=== PATIENT | male | born 1950 | race Caucasian/White ===

== ENCOUNTER → 2018-06-10 | Outpatient (REF) | payer MEDICARE ==
[2018-06-10 14:17] LABS: HEMOGLOBIN A1c 5.9 %
[2018-06-10 14:19] LABS: FOLATE > 24.0 NG/ML (>5.4); FREE T4 0.86 NG/DL (0.76-1.46); RHEUMATOID FACTOR QUANT 89.2 IU/ML (<15.0); VITAMIN B12 LEVEL 575 PG/ML (247-911)
[2018-06-12 13:10] LABS: ALBUMIN 4.31 GM/DL (3.29-5.55); ALBUMIN % 61.6 % (55.8-66.1); ALPHA-1-GLOBULIN % 4.7 % (2.9-4.9); ALPHA-1-GLOBULINS 0.33 GM/DL (0.17-0.41); ALPHA-2-GLOBULINS 0.71 GM/DL (0.42-0.99); ALPHA-2-GLOBULINS % 10.2 % (7.1-11.8); BETA-1-GLOBULINS 0.43 GM/DL (0.28-0.60); BETA-1-GLOBULINS % 6.2 % (4.7-7.2); BETA-2-GLOBULINS 0.35 GM/DL (0.19-0.55); GAMMA GLOBULIN % 12.3 % (11.1-18.8); GAMMA GLOBULINS 0.86 GM/DL (0.65-1.58)
[2018-06-13 08:07] LABS: VITAMIN E(ALPHA TOCOPHEROL) 10.5 mg/L (9.0-29.0); VITAMIN E(GAMMA TOCOPHEROL) 0.7 mg/L (0.5-4.9)
== END ==
LOC: M LABNEURO 10:00
PROVIDERS: ATTEND Psychiatry & Neurology Neurology
DX: E11.9 Type 2 diabetes mellitus without complications (principal); E07.9 Disorder of thyroid, unspecified; R20.0 Anesthesia of skin

== ENCOUNTER → 2018-10-21 | Outpatient (REF) | payer MEDICARE ==
[~2018-10-21] MED LIST: ATOR1TAB21 PO; SM S160C PO; [UNRECOGNIZED DRUG - OTHER] PO
== END ==
LOC: M LABNEURO 12:10
PROVIDERS: ATTEND Psychiatry & Neurology Neurology
DX: R20.2 Paresthesia of skin (principal)

== ENCOUNTER → 2019-02-24 | Outpatient (CLI) | payer MEDICARE ==
[2019-02-24 12:29] LABS: APPEARANCE, URINE CLEAR (CLEAR); BACTERIA, URINE AUTO NEGATIVE (NEGATIVE); BILIRUBIN, URINE AUTO NEGATIVE (NEGATIVE); BLOOD, URINE BLOOD NEGATIVE (NEGATIVE); COLOR, URINE YELLOW (YELLOW); GLUCOSE, URINE (UA) AUTO NEGATIVE (NEGATIVE); KETONE, URINE AUTO NEGATIVE (NEGATIVE); LEUKOCYTE ESTERASE, URINE AUTO NEGATIVE (NEGATIVE); MUCUS, URINE SMALL (NEGATIVE); NITRITE, URINE AUTO NEGATIVE (NEGATIVE); PROTEIN, URINE AUTO NEGATIVE (NEGATIVE); RBC, URINE AUTO 0 /HPF (0-3); SPECIFIC GRAVITY URINE AUTO 1.005 (1.002-1.035); SQUAMOUS EPITHELIAL CELL UR AU 0 /HPF (0-6); UROBILINOGEN, URINE AUTO 0.2 mg/dL (0.0-2.0); WBC, URINE AUTO 0 /HPF (0-3)
[2019-02-24 12:34] LABS: BASO # 0.1 10^3/uL (0.0-0.2); BASO % 0.9 % (0.0-1.0); EOS # 0.1 10^3/uL (0.0-0.5); EOS % 2.4 % (0.0-3.0); HEMATOCRIT 42.6 % (42.0-52.0); HEMOGLOBIN 14.5 g/dl (13.5-17.5); LYMPH # 1.8 10^3/uL (1.5-5.0); LYMPH % 33.3 % (24.0-44.0); MEAN CORPUSCULAR HEMOGLOBIN 31.6 pg (27.0-33.0); MEAN CORPUSCULAR VOLUME 92.8 fl (80.0-96.0); MONO # 0.4 10^3/uL (0.0-0.8); MONO % 7.8 % (0.0-5.0); PLATELET COUNT, AUTOMATED 109 10^3/uL (150-450); RED BLOOD COUNT 4.59 10^6/uL (4.30-6.10); WHITE BLOOD COUNT 5.4 10^3/uL (4.0-10.0)
[2019-02-24 12:46] LABS: CREATININE,RANDOM URINE 46.5 MG/DL; TOTAL PROTEIN,RANDOM URINE < 5.0 MG/DL (0.0-12.0)
[2019-02-24 12:49] LABS: ALBUMIN 3.6 GM/DL (3.2-5.2); ALT/SGPT 35 U/L (12-78); BILIRUBIN,TOTAL 0.6 MG/DL (0.2-1.0); BLOOD UREA NITROGEN 20 MG/DL (7-18); C REACTIVE PROTEIN QUANTITATIV < 0.30 MG/DL (0.00-0.30); CARBON DIOXIDE LEVEL 30 MEQ/L (21-32); CHLORIDE LEVEL 106 MEQ/L (98-107); COMPLEMENT C3 81 MG/DL (90-180); COMPLEMENT C4 21 MG/DL (10-40); CREATININE FOR GFR 1.24 MG/DL (0.70-1.30); GLOMERULAR FILTRATION RATE > 60.0 (>49); GLUCOSE, FASTING 71 MG/DL (70-100); POTASSIUM SERUM 4.1 MEQ/L (3.5-5.1); SODIUM LEVEL 142 MEQ/L (136-145); TOTAL PROTEIN 6.3 GM/DL (6.4-8.2)
[2019-02-24 13:23] LABS: ERYTHROCYTE SEDIMENTATION RATE 2 mm/hr (0-20)
[2019-02-25 09:12] LABS: HEPATITIS B SURFACE ANTIBODY NEGATIVE (POSITIVE)
[2019-02-25 09:23] LABS: HEPATITIS B SURFACE ANTIGEN NEGATIVE (NEGATIVE)
[2019-02-25 09:51] LABS: HEPATITIS C VIRUS ABY INDEX 0.1 INDEX (<0.8)
[2019-02-26 09:38] LABS: ALBUMIN 3.96 GM/DL (3.29-5.55); ALBUMIN % 62.8 % (55.8-66.1); ALPHA-1-GLOBULIN % 4.1 % (2.9-4.9); ALPHA-1-GLOBULINS 0.26 GM/DL (0.17-0.41); ALPHA-2-GLOBULINS 0.55 GM/DL (0.42-0.99); ALPHA-2-GLOBULINS % 8.8 % (7.1-11.8); BETA-1-GLOBULINS % 6.4 % (4.7-7.2); BETA-2-GLOBULINS % 4.8 % (3.2-6.5); GAMMA GLOBULIN % 13.1 % (11.1-18.8); GAMMA GLOBULINS 0.83 GM/DL (0.65-1.58)
== END ==
LOC: M LAB 10:18
PROVIDERS: ATTEND Internal Medicine Rheumatology
DX: R89.9 Unspecified abnormal finding in specimens from other organs, systems and tissues (principal)

== ENCOUNTER 2019-03-17 07:23 | Day surgery (SDC) | payer MEDICARE ==
[~2019-03-17] VITALS: Ht 177.8 cm; Wt 81.2 kg
[~2019-03-17 07:23] MED LIST changes: +NS 1,000 ML IV ONE; -SM S160C PO
[2019-03-17] MEDS ORDERED: LIDOCAINE 2% INJ 100 MG/5 ML SDV (FOR ANES.) As Ordered ONE (08:15)
[2019-03-17] MEDS ORDERED: PROPOFOL 500 MG/50 ML VIAL As Ordered ONE (08:15)
--- NOTE | 2019-03-17 08:33 | ROOR ---
Patient Name: Pedro Cordero Procedure Date: 03/17/2019 8:13 AM Date of : 1950 Age: 69 Room: [facility] Gender: Male Note Status: Finalized Procedure: Total Colonoscopy to Cecum + Cold Snare Polypectomy Indications: High risk colon cancer surveillance: Personal history of colonic polyps, Last colonoscopy: 2013 Providers: Douglas Woodall MD Referring MD: Navid Rodríguez MD Requesting Provider: Medicines: Monitored Anesthesia Care Complications: No immediate complications. Procedure: Pre-Anesthesia Assessment: - The heart rate, respiratory rate, oxygen saturations, blood pressure, adequacy of pulmonary ventilation, and response to care were monitored throughout the procedure. The Colonoscope was introduced through the anus and advanced to the cecum, identified by appendiceal orifice and ileocecal valve. The colonoscopy was performed without difficulty. The patient tolerated the procedure well. The quality of the bowel preparation was excellent. Findings: The perianal and digital rectal examinations were normal. Non-bleeding internal hemorrhoids were found during retroflexion. The hemorrhoids were small and Grade I (internal hemorrhoids that do not prolapse). Scattered small-mouthed diverticula were found in the recto-sigmoid colon, sigmoid colon and descending colon. A small polyp was found in the ascending colon. The polyp was sessile. The polyp was removed with a cold snare. Resection and retrieval were complete. The exam was otherwise without abnormality on direct and retroflexion views. Impression: - Non-bleeding internal hemorrhoids. - Diverticulosis in the recto-sigmoid colon, in the sigmoid colon and in the descending colon. - One small polyp in the ascending colon, removed with a cold snare. Resected and retrieved. - The examination was otherwise normal on direct and retroflexion views. - The exam was otherwise normal to the cecum. Recommendation: - Patient has a contact number available for emergencies. The signs and symptoms of potential delayed complications were discussed with the patient. Return to normal activities tomorrow. Written discharge instructions were provided to the patient. - High fiber diet. - Discharge patient to home. - Continue present medications. - Await pathology results. - Telephone GI clinic for pathology results in 1 week. - Return to referring physician. - The findings and recommendations were discussed with the patient's family. Douglas Woodall MD Douglas Woodall MD 03/17/2019 8:33:25 AM Electronically signed by Douglas Woodall MD Number of Addenda: 0 Note Initiated On: 03/17/2019 8:13 AM Estimated Blood Loss: Estimated blood loss: none.
[2019-03-17 08:50] VITALS: BP 98/65
== END 2019-03-17 09:00 | disposition home or self-care (01) ==
LOC: M OPP 07:23
PROVIDERS: ATTEND Internal Medicine Gastroenterology
DX: Z12.11 Encounter for screening for malignant neoplasm of colon (principal); Z86.010 Personal history of colon polyps; D12.2 Benign neoplasm of ascending colon; K64.0 First degree hemorrhoids; K57.30 Diverticulosis of large intestine without perforation or abscess without bleeding; Z79.899 Other long term (current) drug therapy

== ENCOUNTER 2019-04-02 09:24 | Observation (INO) | payer MEDICARE ==
[~2019-04-02] VITALS: Ht 177.8 cm; Wt 83.2 kg
[~2019-04-02 09:24] MED LIST changes: -NS 1,000 ML IV ONE
[2019-04-02 10:11] LABS: BASO % 0.4 % (0.0-1.0); EOS # 0.1 10^3/uL (0.0-0.5); EOS % 0.8 % (0.0-3.0); HEMATOCRIT 43.4 % (42.0-52.0); HEMOGLOBIN 14.9 g/dl (13.5-17.5); LYMPH # 1.8 10^3/uL (1.5-5.0); LYMPH % 23.5 % (24.0-44.0); MEAN CORPUSCULAR HEMOGLOBIN 31.2 pg (27.0-33.0); MEAN CORPUSCULAR HGB CONC 34.3 g/dl (32.0-36.5); MEAN CORPUSCULAR VOLUME 90.8 fl (80.0-96.0); MONO # 0.5 10^3/uL (0.0-0.8); MONO % 6.3 % (0.0-5.0); NEUTROPHILS # 5.2 10^3/uL (1.5-8.5); NEUTROPHILS % 68.6 % (36.0-66.0); PLATELET COUNT, AUTOMATED 167 10^3/uL (150-450); RED BLOOD COUNT 4.78 10^6/uL (4.30-6.10); WHITE BLOOD COUNT 7.6 10^3/uL (4.0-10.0)
--- NOTE | 2019-04-02 10:37 | REP ---
Portable chest x-ray: Single view. History: Syncope. Findings: The lungs are well inflated and clear. Pleural angles are sharp. Heart size is normal. Pulmonary vasculature is not increased. Monitoring electrodes are seen. No bony abnormalities seen. Impression: Negative portable chest x-ray. Electronically Signed by Jaime Jensen MD 04/02/2019 10:28 A
[2019-04-02 10:49] LABS: BLOOD UREA NITROGEN 18 MG/DL (7-18); CALCIUM LEVEL 9.2 MG/DL (8.8-10.2); CARBON DIOXIDE LEVEL 26 MEQ/L (21-32); CHLORIDE LEVEL 106 MEQ/L (98-107); CK-MB VALUE MASS 4.6 NG/ML (<3.6); CPK CREATINE PHOSPHOKINASE 182 U/L (39-308); CREATININE FOR GFR 1.61 MG/DL (0.70-1.30); FREE T4 0.96 NG/DL (0.76-1.46); GLOMERULAR FILTRATION RATE 45.5 (>49); GLUCOSE, FASTING 91 MG/DL (70-100); MB/CK RELATIVE INDEX 2.53 (< OR =4); SODIUM LEVEL 143 MEQ/L (136-145); TROPONIN I < 0.02 NG/ML (< 0.10)
[2019-04-02] MEDS ORDERED: SM S160C PO (12:05)
[2019-04-02] MEDS ORDERED: ACETAMINOPHEN TAB 650MG DOSE (2X325MG) PO PRN (13:15)
[2019-04-02 14:44] VITALS: BP 118/72
--- NOTE | 2019-04-02 17:41 | HPEPDOC ---
General Date of Admission Apr 02, 2019 at 09:25 Date of Service: Apr 02, 2019 Attending Physician: OLIMPIA ENGEL MD Chief Complaint The patient is a 69-year-old male admitted with a reason for visit of Near Syncope. Source: Patient Exam Limitations: No limitations Timing/Duration: 4-6 hours Severity: Moderate Associated Symptoms: Other (Presyncope) History of Present Illness 69 yo man in good health with a recent history of progressive peripheral ne uropathy with normal B12, B6 and ongoing neurology and rheumatology evaluation, a prior diagnosis of hyperlipidemia? 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 Mr. Cordero had a near syncope episode this morning while taking out his trash and then a few hours later was noted to have a HR of 140s. He reports having been previously told that he had an "irregular" heartbeat but has never had an evaluation of it or been symptomatic from it until today. 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 Home Medications Scheduled Atorvastatin Calcium (Atorvastatin Calcium) 20 Mg Tablet, 20 MG PO DAILY, (Reported) [place] ([place]) 160 Mg Capsule, 160 MG PO DAILY, (Reported) Allergies Coded Allergies: No Known Allergies (Unverified , 03/03/19) Past Medical History Medical History Progressive peripheral neuropathy Carpal tunnel syndrome "Irregular heart beat" Arthritis Prediabetes Surgical History None Family History Significant Family History: No pertinent family hx Social History * Smoker: non-smoker Drugs: denies Recent Travel/Sick Contacts: Denies: Recent travel, Recent sick contacts Psychosocial History: No pertinent psych hx A-FIB/CHADSVASC A-FIB History Current/History of A-Fib/PAF?: No Current PO Anticoag Therapy: No Age/Risk Factor Scoring CHADSVASC: CHADSVASC Response (Comments) Value Age Risk Factor Age 65-74 years old 1 Gender Risk Factor Male 0 Hx of CHF No 0 Hx of HTN No 0 Hx of Stroke/TIA/or VTE No 0 Hx of Diabetes No 0 Hx of Vascular Disease No 0 Total 1 Treatment Treatment ordered: NONE Reason Anticoagulant not given: Not indicated/[id number] Review of Systems Constitutional: Denies: Chills, Fever, Night Sweats Eyes: Denies: Pain, Vision change ENT: Denies: Head Aches, Ear Pain, Dysphagia Skin: Denies: Rash, Lesions, Breakdown Pulmonary: Denies: Dyspnea, Cough Cardiovascular: Denies: Chest Pain, Palpitations, Orthopnea, Paroxysmal Noc. Dyspnea, Lt Headedness Gastrointestinal: Denies: Nausea, Vomiting, Abdominal Pain, Diarrhea Genitourinary: Denies: Dysuria, Frequency, Incontinence, Retention Hematologic: Denies: Bruising, Bleeding Excessively Endocrine: Denies: Polydipsia, Polyphagia, Polyuria, Heat Intolerance, Cold Intolerance, Other Endocrine Sx Musculoskeletal: Denies: Neck Pain, Back Pain, Joint Pain, Muscle Pain, Spasms Neurological: Reports: Other Symptoms (near syncope); Denies: Weakness, Numbness, Change in speech, Confusion Psych: Reports: Mood Normal; Denies: Depression, Memory Issues Physical Examination General Exam: Positive: Alert, No Acute Distress Eye Exam: Positive: PERRLA, Conjunctiva & lids normal, EOMI; Negative: Sclera icteric ENT Exam: Positive: Atraumatic, Mucous membr. moist/pink, Pharynx Normal Neck Exam: Positive: Supple; Negative: JVD, thyromegaly Chest Exam: Positive: Clear to auscultation, Normal air movement Heart Exam: Positive: Rate Normal, Regular Rhythm, Normal S1, Normal S2; Negative: Murmurs, Rubs Telemetry: Positive: SV Tach (short episodes of narrow complex tach and infrequent PVCs) Abdomen Exam: Positive: Normal bowel sounds, Soft; Negative: Tenderness, Hepatospenomegaly Extremity Exam: Positive: Normal pulses; Negative: Clubbing, Cyanosis, Edema Skin Exam: Positive: Nl turgor and temperature; Negative: Breakdown, Lesion Neuro Exam: Positive: Normal Gait, Normal Speech, Cranial Nerves 3-12 NL, Reflexes 2+ Psych Exam: Positive: Mental status NL, Mood NL, Oriented x 3 Vital Signs Vital Signs Date Time Temp Pulse Resp B/P (MAP) Pulse Ox O2 Delivery O2 Flow Rate FiO2 04/02/19 14:45 97.4 68 16 101/60 (74) 98 Room Air Laboratory Data Labs 24H Laboratory Tests 2 04/02/19 09:56: Immature Granulocyte % (Auto) 0.4, Neutrophils (%) (Auto) 68.6H, Lymphocytes (%) (Auto) 23.5L, Monocytes (%) (Auto) 6.3H, Eosinophils (%) (Auto) 0.8, Basophils (%) (Auto) 0.4, Neutrophils # (Auto) 5.2, Lymphocytes # (Auto) 1.8, Monocytes # (Auto) 0.5, Eosinophils # (Auto) 0.1, Basophils # (Auto) 0.0, Nucleated Red Blood Cells % (auto) 0.0, Anion Gap 11, Glomerular Filtration Rate 45.5L, Calcium Level 9.2, Magnesium Level 2.0, Total Creatine Kinase 182, Creatine Kinase MB 4.6H, Creatine Kinase MB Relative Index 2.53, Troponin I < 0.02, Thyroid Stimulating Hormone (TSH) 1.370, Free Thyroxine 0.96 CBC/BMP Laboratory Tests 04/02/19 09:56 Assessment/Plan 69 yo man with a history of progressive peripheral neuropathy and hyperlipidemia and preDM who presented to the ED with presyncope with noted tachycardia in the rheumatology office with significant ectopy on telemetry with narrow complex tachycardia with episodes of sinus tach with P waves with variable morphologies. Plan: Near syncope: Likely 2/2 episodic symptomatic narrow complex tachycardia with no definitive cardiac history. Given the history of progressive peripheral neuropathy with no identified nutritional deficiencies per outpatient work up, no significant metabolic syndrome, with new electrophysiology abnormalities, would consider amyloid in addition to other cardiac etiologies. -Admit to [facility] with tele -Mag was normal, goal >2 -Rest of electrolytes were wnl, goal K 4 -TSH and free T4 were within normal limits -TTE -Consulted Dr. Pearce, appreciate pending recs -Will not start beta blockade at this time as he is bouncing between 50s with short episodes of tachycardia to 150s. Hyperlipidemia: -continue lipitor 20 PreDM: -Daily BMPs, no need to have FSBG unless persistently hyperglycemic TADEO: Does not appear hypovolemic, unclear etiology at this time -will give 500cc bolus and monitor Cr -send urine lytes DVT ppx: heparin 5000 Q8H Diet: regular Plan / VTE VTE Prophylaxis Ordered?: Yes OLIMPIA ENGEL MD Apr 02, 2019 17:41
[2019-04-02] MEDS ORDERED: NS 1,000 ML IV SCH (17:45)
--- NOTE | 2019-04-02 18:26 | ECHO ---
DATE OF PROCEDURE: 04/02/2019 REFERRING PHYSICIAN: Dr. Ramos INDICATION: Arrhythmias. HEIGHT: 178 cm WEIGHT: 83 kg DIMENSIONS: IVS: 1.3 LV: 4.3 LVPW: 1.2 LA: 4.0 Aorta: 3.2 Mitral E wave velocity; 82, A wave 43. E prime septal: 5.4 A prime lateral: 8.9 FINDINGS The study is of very good technical quality. The patient is in sinus rhythm. Left ventricle is of normal size and systolic function, I estimate left ventricular ejection fraction (LVEF) around 55-60%. Mild left ventricular hypertrophy (LVH) is noted. Right ventricle is also normal size and systolic function. Left atrium is borderline enlarged. Right atrium appears normal. All four cardiac valves were reasonably well seen and appears structurally normal. No pericardial effusion is noted. Aortic root appears normal. Inferior vena cava, aortic arch and abdominal aorta were not well seen. Doppler interrogation reveals competent aortic valve, there is trace mitral tricuspid and pulmonic insufficiency. Calculated pulmonary artery pressure is within normal limits. Mitral inflow pattern and tissue Doppler imaging of mitral annulus revealed most likely grade 2 diastolic dysfunction. CONCLUSIONS 1. Study is of good technical quality, the patient is in sinus rhythm. 2. Normal left ventricle (LV) size with mild LVH, low normal LV systolic function and probably grade 2 diastolic dysfunction. 3. No hemodynamically significant valvular disease. 4. Unable to estimate central venous pressure but probably normal pulmonary artery pressure. COMMENT Subacute bacterial endocarditis (SBE) prophylaxis not recommended. MTDD
[2019-04-02] MEDS: HEPARIN SOD (PORCINE) 5000 UNITS/ML VIAL SC SCH (21:02)
[2019-04-02 22:00] VITALS: BP 134/91
[2019-04-03] MEDS: HEPARIN SOD (PORCINE) 5000 UNITS/ML VIAL SC SCH (05:13)
[2019-04-03 06:00] VITALS: BP 137/87
[2019-04-03 06:15] LABS: HEMOGLOBIN 14.6 g/dl (13.5-17.5); MEAN CORPUSCULAR HEMOGLOBIN 30.9 pg (27.0-33.0); MEAN CORPUSCULAR HGB CONC 33.2 g/dl (32.0-36.5); PLATELET COUNT, AUTOMATED 129 10^3/uL (150-450); RED BLOOD COUNT 4.73 10^6/uL (4.30-6.10); WHITE BLOOD COUNT 6.2 10^3/uL (4.0-10.0)
[2019-04-03 06:41] LABS: ALBUMIN 3.3 GM/DL (3.2-5.2); ALT/SGPT 28 U/L (12-78); BILIRUBIN,TOTAL 0.8 MG/DL (0.2-1.0); BLOOD UREA NITROGEN 18 MG/DL (7-18); CALCIUM LEVEL 8.7 MG/DL (8.8-10.2); CARBON DIOXIDE LEVEL 30 MEQ/L (21-32); CHLORIDE LEVEL 108 MEQ/L (98-107); CREATININE FOR GFR 1.34 MG/DL (0.70-1.30); GLOMERULAR FILTRATION RATE 56.3 (>49); GLUCOSE, FASTING 85 MG/DL (70-100); POTASSIUM SERUM 4.1 MEQ/L (3.5-5.1); SODIUM LEVEL 143 MEQ/L (136-145); TOTAL PROTEIN 6.3 GM/DL (6.4-8.2)
[2019-04-03 08:53] LABS: CHOLESTEROL LEVEL 139 MG/DL (<200); CHOLESTEROL RISK RATIO 2.278 (<5); CK-MB VALUE MASS 2.5 NG/ML (<3.6); CPK CREATINE PHOSPHOKINASE 120 U/L (39-308); HDL CHOLESTEROL 61 MG/DL (>40); LDL CHOLESTEROL 62 MG/DL (<100); MB/CK RELATIVE INDEX 2.08 (< OR =4); NON-HDL-C 78 MG/DL; TRIGLYCERIDES LEVEL 82 MG/DL (<150); TROPONIN I < 0.02 NG/ML (< 0.10)
[2019-04-03] MEDS ORDERED: ATORVASTATIN 20 MG TAB PO SCH (09:00)
--- NOTE | 2019-04-03 11:09 | DS.PDOC ---
Discharge Summary General Date of Admission Apr 02, 2019 at 09:25 Date of Discharge 04/03/2019 Attending Physician: OLIMPIA ENGEL MD Specialist/Consultants Involve: EMMY FLORES MD Discharge Summary PROCEDURES PERFORMED DURING STAY: None ADMITTING DIAGNOSES: 1. Near syncope DISCHARGE DIAGNOSES: 1. Near syncope 2/2 symptomatic episodic SVTs COMPLICATIONS/CHIEF COMPLAINT: Near Syncope. HISTORY OF PRESENT ILLNESS: 69 yo man in good health with a recent history of progressive peripheral neuropathy with normal B12, B6 and ongoing neurology and rheumatology evaluation, a prior diagnosis of hyperlipidemia? 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 He reported a near syncope episode on the morning of presentation while taking out his trash and then a few hours later was noted to have a HR of 140s. He reports having been previously told that he had an "irregular" heartbeat but has never had an evaluation of it or been symptomatic from it until the day of presentation. 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 Of note, his father had an "irregular heart beat" and from complications of his second stroke. HOSPITAL COURSE: He was placed on telemetry where he had a bsalien HR of 50-60s with tachycardia with exertion to 109. Cardiology was consulted and after a repeat set of cardiac enzymes was negative and EKG showed NSR with episodes of supraventricular tachycardia, Dr. Flores cleared him for home discharge with plan to pickers material handlers a Holter monitor in the office later today. Of note, he had a TTE that was notable for grade 2 diastolic dysfunction and some LVH with otherwise normal LVEF. DISCHARGE MEDICATIONS: Please see below. ALLERGIES: Please see below. PHYSICAL EXAMINATION ON DISCHARGE: VITAL SIGNS: Please see below. General Exam: Positive: Alert, No Acute Distress Eye Exam: PERRLA, Conjunctiva & lids normal, EOMI ENT Exam: Atraumatic, Mucous membr. moist/pink, Pharynx Normal Neck Exam: Supple, no JVD or thyromegaly Chest Exam: Clear to auscultation, Normal air movement Heart Exam: Rate Normal, Regular Rhythm, Normal S1, Normal S2, no murmurs or Rubs Telemetry: short episodes of narrow complex tach and infrequent PVCs Abdomen Exam: Normal bowel sounds, Soft, nontender Extremity Exam: no LE edema, WWP, 2+ DP pulses Skin Exam: Nl turgor and temperature Neuro Exam: Normal Gait, Normal Speech, Cranial Nerves 3-12 NL, Reflexes 2+ Psych Exam: Mental status NL, Mood NL, Oriented x 3 LABORATORY DATA: Please see below. IMAGING: CXR: No acute abnormalities TTE: Left ventricle is of normal size and systolic function, I estimate left ventricular ejection fraction (LVEF) around 55-60%. Mild left ventricular hypertrophy (LVH) is noted. Right ventricle is also normal size and systolic function. Left atrium is borderline enlarged. Right atrium appears normal. All four cardiac valves were reasonably well seen and appears structurally normal. No pericardial effusion is noted. Aortic root appears normal. Inferior vena cava, aortic arch and abdominal aorta were not well seen. Doppler interrogation reveals competent aortic valve, there is trace mitral tricuspid and pulmonic insufficiency. Calculated pulmonary artery pressure is within normal limits. Mitral inflow pattern and tissue Doppler imaging of mitral annulus revealed most likely grade 2 diastolic dysfunction. CONCLUSIONS 1. Study is of good technical quality, the patient is in sinus rhythm. 2. Normal left ventricle (LV) size with mild LVH, low normal LV systolic function and probably grade 2 diastolic dysfunction. 3. No hemodynamically significant valvular disease. 4. Unable to estimate central venous pressure but probably normal pulmonary artery pressure. PROGNOSIS: Good ACTIVITY: as tolerated DIET: regular DISCHARGE PLAN: will pickers material handlers Holter at Dr. Flores's office shortly and follow up with him outpatient DISPOSITION: Home DISCHARGE INSTRUCTIONS: To pickers material handlers Holter at Dr. Flores's office shortly and follow up with him outpatient ITEMS TO FOLLOWUP ON ON OUTPATIENT: 1. Irregular heartbeat DISCHARGE CONDITION: Good TIME SPENT ON DISCHARGE: 33 minutes. Vital Signs/I&Os Vital Signs Date Time Temp Pulse Resp B/P (MAP) Pulse Ox O2 Delivery O2 Flow Rate FiO2 04/03/19 06:00 98.1 70 18 137/87 (104) 98 Room Air I&O- Last 24 Hours up to 6 AM 04/03/19 06:00 Intake Total 660 ml Output Total 800 ml Balance -140 ml Laboratory Data Labs 24H Laboratory Tests 2 04/03/19 05:19: Nucleated Red Blood Cells % (auto) 0.0, Anion Gap 5L, Glomerular Filtration Rate 56.3, Calcium Level 8.7L, Magnesium Level 2.0, Total Bilirubin 0.8, Aspartate Amino Transf (AST/SGOT) 19, Alanine Aminotransferase (ALT/SGPT) 28, Alkaline Phosphatase 48, Total Creatine Kinase 120, Creatine Kinase MB 2.5, Creatine Kinase MB Relative Index 2.08, Troponin I < 0.02, Total Protein 6.3L, Albumin 3. 3, Albumin/Globulin Ratio 1.10, Triglycerides Level 82, Total Cholesterol 139, LDL Cholesterol 62, Non-HDL Cholesterol (LDL + VLDL) 78, Total HDL Cholesterol 61, Cholesterol/HDL Ratio 2.278 CBC/BMP Laboratory Tests 04/03/19 05:19 Discharge Medications Scheduled Atorvastatin Calcium (Atorvastatin Calcium) 20 Mg Tablet, 20 MG PO DAILY, (Reported) [place] ([place]) 160 Mg Capsule, 160 MG PO DAILY, (Reported) Allergies Coded Allergies: No Known Allergies (Unverified , 03/03/19) OLIMPIA ENGEL MD Apr 03, 2019 11:09
--- NOTE | 2019-04-03 22:14 | CR ---
DATE OF CONSULTATION: 04/03/2019 CARDIOLOGY CONSULTATION REFERRING PROVIDER: Dr. Anna Ramos PRIMARY PROVIDER: Dr. Navid Rodríguez REASON FOR THE CONSULT: Near syncope, palpitations. HISTORY OF THE PRESENT ILLNESS: A 69-year-old male with a history of hyperlipidemia and peripheral neuropathy, has been evaluated, as well as BPH and abnormal fasting blood sugar. 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 Prior to that earlier in the morning, he was bringing his trash to the curbside, and he felt short of breath and rapid heart rate but no chest pain. He is very active and has not been having any chest pain. He was told years ago he had irregular heartbeats but has not had any prior cardiac workup but EKGs. He denies any prior episode of syncope. There is no complaint of orthopnea, pedal edema or prior episode of shortness of breath. He has been very active and exercising. There is no focal manifestation. Case was discussed with the hospitalist yesterday, and he was admitted for observation. He has been doing well since in the hospital without any cardiac arrhythmias. He has been ambulating around the nursing station without any palpitations, chest pain, or shortness of breath, or dizziness or lightheadedness. His blood pressure has been good since in the hospital. He denies any cough, hemoptysis or fever. He has no nausea, vomiting, diarrhea, melena or hematemesis. There is no acute swelling or redness of the joints. PAST MEDICAL HISTORY: He has a past medical positive for, as mentioned above, for hyperlipidemia, BPH, glucose intolerance, and peripheral neuropathy. There is no history of hypertension, kidney disease, thyroid disorders, significant valvular heart disease, atrial fibrillation/flutter, transient ischemic attack (TIA)/CVA, cardiomyopathy, sudden cardiac . There is no history of thyroid disorders. In the past, he was on medication (med) for his BPH but did not like the side effects and it was switched to [place]. PAST SURGICAL HISTORY: Unremarkable. FAMILY HISTORY: Noncontributory. There is no history of premature coronary artery disease, cardiomyopathy, or sudden cardiac . SOCIAL HISTORY: The patient lives in town with family who are very supportive. He does not smoke or abuse alcohol. There is no use of illicit drugs. He is still very active and works for [employer]. ALLERGIES: No known drug allergies. ADVANCED DIRECTIVES: The patient is a FULL CODE. PHYSICAL EXAMINATION: The patient is alert and oriented, in no acute distress at rest, and his vital signs when I saw him earlier today revealed a blood pressure of 137/87 with a pulse of 70, [id number], and his maximum temperature was 98.1 degrees Fahrenheit with an oxygen saturation of 98% on room air. Examination of the head: Atraumatic. Neck did not reveal any carotid bruits. The lungs did not reveal any wheezing or crackles on auscultation. The heart examination revealed irregular heart sounds without gallops. The point of maximum impulse (PMI) is not displaced. There is no rub. I could not appreciate any murmurs. Abdomen is soft and nontender. Bowel sounds are active. Extremities: Revealed no pedal edema. Peripheral pulses: Dorsalis pedis and pulses were +2 and equal. Neurological Examination: Negative for focal deficit. LABORATORY DATA: CBC done this morning revealed a WBC of 6.2, hemoglobin 14.6, hematocrit 44.0, and platelets 129,000. On admission, the CBC revealed a WBC of 7.6, hemoglobin 14.9, hematocrit 43.4 and platelets 167,000. BMP today revealed a sodium of 143, potassium 4.1, chloride 108, CO2 30, BUN 18, creatinine 1.34, GFR 56.3 and fasting glucose 85. Serum calcium is 8.7. Serum magnesium is 2.0. Liver enzymes revealed a total bilirubin of 0.8, AST 19, ALT 28, alkaline phosphatase 48, total protein 6.3, albumin 3.3. Serum TSH is 1.3 and free T4 0.96. Lipid profile done today revealed a total cholesterol of 139, triglycerides 82, LDL 62, and total cholesterol/HDL ratio of 2.2. HDL was 61. Serum troponin has been negative, less than 0.02 times two. Serum creatinine on admission was 1.61. Chest x-ray done on admission, 04/02/2019, revealed no acute disease process. Normal heart size. Echocardiogram revealed normal global left ventricular systolic function estimated at 55-60% with grade 2 left ventricular diastolic dysfunction. There was no significant valvular heart disease. The aortic root was normal in size. Telemetry were reviewed and isolated premature atrial contractions (PACs) mainly noted. IMPRESSION: 1. A 69-year-old male who was found to have a rapid heart rate, but nonsignificant noted today and since hospitalization. He was having shortness of breath and feeling dizzy but no syncope. His echocardiogram is benign and no subsequent arrhythmia has been found so far on telemetry. He has been ambulating and asymptomatic. His serum troponin is negative. This was discussed with him as well as family members present in the room. He was told to increase his ambulation around the nursing station, and if remains asymptomatic, he can go home, which he did. He had a 30-day event recorder, and he is being monitored. He will be coming to the office for an exercise treadmill test. I will inform you of any findings and recommendations. 2. Hyperlipidemia and he will continue with his statin. 3. History of BPH. 4. Abnormal fasting blood sugar, being addressed and he has made some changes in his diet. 5. Elevated serum creatinine, and this has improved since in the hospital, and he will keep himself hydrated and his primary will follow on that. 6. Thrombocytopenia and the patient is also aware of that and that will need to be followed as an outpatient. It was a pleasure to participate in the care of . Pedro Cordero for his underlying cardiac condition. Case was discussed with his hospitalist. He will continue to follow with his primary, and I will monitor him with him for his underlying cardiac condition.
--- NOTE | 2019-04-04 06:30 | ECGEPIP ---
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
--- NOTE | 2019-04-04 06:31 | ECGEPIP ---
[facility] - ED Test Date: 2019-04-02 Pat Name: TAMY SAENZ Department: Room: - Gender: Male House Rn: raman : 1950 Requested By: Natasha Nathan Order Number: [id number] Reading MD: Faisal Quigley Measurements Intervals [place] Rate: 73 P: DC: 0 QRS: -31 QRSD: 106 T: 11 QT: 383 QTc: 424 Interpretive Statements ATRIAL FIBRILLATION W PVC MARKED LEFT AXIS DEVIATION DELAYED R WAVE PROGRESSION NONSPECIFIC ST T WAVE CHANGES CW 04/02/19 RATE DECREASED Electronically Signed on 04-04-2019 6:30:33 EST by Faisal Quigley
== END 2019-04-03 12:00 | disposition home or self-care (01) ==
LOC: M ED 09:24 → M ED INP 09:25 → M MSPAV 15:03
PROVIDERS: ADMIT Internal Medicine; ATTEND Internal Medicine
DX: R55 Syncope and collapse (principal); E78.49 Other hyperlipidemia; I49.9 Cardiac arrhythmia, unspecified; G62.9 Polyneuropathy, unspecified; R73.03 Prediabetes; Z79.899 Other long term (current) drug therapy
CPT/HCPCS: 36415; 71045; 80048; 80053; 80061; 82550; 82553; 83735; 84439; 84443; 84484; 85025; 85027; 93005; 93041; 93306; 94760; 96372; 96374; 99285; G0378

== ENCOUNTER 2023-06-05 11:37 | Day surgery (SDC) | payer MEDICARE ==
[~2023-06-05] VITALS: Ht 177.8 cm; Wt 76.7 kg
[~2023-06-05 11:37] MED LIST changes: +ECOT81TA5 PO; +NS 1,000 ML IV ONE; +OMEG10002 PO; +RA S160C PO
[2023-06-05 14:29] VITALS: TEMP 98.5
[2023-06-05 15:00] VITALS: BP 104/57; O2SAT 97
== END 2023-06-05 15:00 | disposition home or self-care (01) ==
LOC: M OPP 11:37
PROVIDERS: ATTEND Internal Medicine Gastroenterology
DX: Z86.010 Personal history of colon polyps (principal); K64.0 First degree hemorrhoids; K57.30 Diverticulosis of large intestine without perforation or abscess without bleeding; Z79.02 Long term (current) use of antithrombotics/antiplatelets; Z79.82 Long term (current) use of aspirin; Z79.899 Other long term (current) drug therapy

== ENCOUNTER 2024-05-23 11:40 | Emergency (ER) | payer MEDICARE ==
[~2024-05-23] VITALS: Ht 177.8 cm; Wt 79.8 kg
[~2024-05-23 11:40] MED LIST changes: -NS 1,000 ML IV ONE
[2024-05-23] MEDS ORDERED: PRAD150C6 (11:54)
[2024-05-23 13:06] LABS: BASO % 0.7 % (0.0-1.0); EOS # 0.1 10^3/uL (0.0-0.5); EOS % 0.9 % (0.0-3.0); HEMATOCRIT 41.4 % (42.0-52.0); HEMOGLOBIN 14.2 g/dl (13.5-17.5); LYMPH # 1.4 10^3/uL (1.5-5.0); LYMPH % 25.3 % (24.0-44.0); MEAN CORPUSCULAR HGB CONC 34.3 g/dl (32.0-36.5); MEAN CORPUSCULAR VOLUME 90.4 fl (80.0-96.0); MONO # 0.4 10^3/uL (0.0-0.8); MONO % 7.4 % (2.0-8.0); NEUTROPHILS # 3.5 10^3/uL (1.5-8.5); NEUTROPHILS % 65.3 % (36.0-66.0); PLATELET COUNT, AUTOMATED 138 10^3/uL (150-450); RED BLOOD COUNT 4.58 10^6/uL (4.30-6.10); WHITE BLOOD COUNT 5.4 10^3/uL (4.0-10.0)
[2024-05-23 13:15] LABS: INR 1.39; PROTHROMBIN TIME 17.4 SECONDS (12.5-14.5)
[2024-05-23 13:29] LABS: CK-MB VALUE MASS 8.1 NG/ML (<3.6)
[2024-05-23 13:31] LABS: ALBUMIN 3.8 G/DL (3.2-5.2); ALKALINE PHOSPHATASE 68 U/L (40-129); ALT/SGPT 40 U/L (7.0-40); AST/SGOT 41 U/L (<34); BILIRUBIN,DIRECT 0.3 MG/DL (<0.4); BILIRUBIN,TOTAL 0.9 MG/DL (0.3-1.2); BLOOD UREA NITROGEN 25 MG/DL (9-23); CALCIUM LEVEL 9.1 MG/DL (8.3-10.6); CARBON DIOXIDE LEVEL 22 MMOL/L (20-31); CHLORIDE LEVEL 109 MMOL/L (98-107); GLOMERULAR FILTRATION RATE > 60.0 (>42); GLUCOSE, FASTING 125 MG/DL (74-106); MAGNESIUM LEVEL 1.7 MG/DL (1.8-2.4); POTASSIUM SERUM 4.4 MMOL/L (3.5-5.1); SODIUM LEVEL 144 MMOL/L (136-145); TOTAL PROTEIN 6.8 G/DL (5.7-8.2)
[2024-05-23 13:32] LABS: THYROID STIMULATING HORMONE 1.594 uIU/ML (0.55-4.78)
[2024-05-23 13:36] LABS: PROCALCITONIN 0.05 ng/ml
[2024-05-23 13:38] LABS: CPK CREATINE PHOSPHOKINASE 195 U/L (46-171); MB/CK RELATIVE INDEX 4.15 (< OR =4)
[2024-05-23] MEDS: FUROSEMIDE 40MG/4ML VIAL IV ONE (14:56)
[2024-05-23] MEDS: MAG SULF 1GM/100ML (MAG RUN) 1 GM in IV 1 EA IV SCH (14:57)
[2024-05-23 15:46] LABS: CK-MB VALUE MASS 7.5 NG/ML (<3.6)
[2024-05-23 15:51] LABS: MB/CK RELATIVE INDEX 4.57 (< OR =4)
[2024-05-23 16:47] LABS: MB/CK RELATIVE INDEX 4.06 (< OR =4)
[2024-05-23 17:11] VITALS: BP 139/66
[2024-05-23] MEDS: METOPROLOL TART 25 MG TABLET PO ONE (17:11)
[2024-05-23 17:29] VITALS: O2SAT 98
[2024-05-23] MEDS ORDERED: ESSE250T PO (17:54)
[2024-05-23] MEDS ORDERED: FURO20TA2 PO (17:54)
[2024-05-23] MEDS ORDERED: HOLTER MONITOR XX (17:54)
[2024-05-23] MEDS ORDERED: METO1TAB87 PO (17:54)
[2024-05-23 18:07] VITALS: BP 150/82; TEMP 98.5; O2SAT 98
== END 2024-05-23 18:20 | disposition home or self-care (01) ==
LOC: M ED 11:40
DX: I50.9 Heart failure, unspecified (principal); I48.91 Unspecified atrial fibrillation; E86.0 Dehydration; E83.42 Hypomagnesemia; N18.30 Chronic kidney disease, stage 3 unspecified; G62.9 Polyneuropathy, unspecified; R73.03 Prediabetes; Z79.899 Other long term (current) drug therapy
CPT/HCPCS: 71045; 80048; 80076; 82550; 82553; 83605; 83735; 83880; 84145; 84443; 84484; 85025; 85610; 87040; 87486; 87581; 87633; 87798; 93005; 93041; 94760; 96365; 96375; 99285; J1940; J3475

== ENCOUNTER → 2024-08-05 | Outpatient (CLI) | payer MEDICARE ==
[~2024-08-05] MED LIST changes: +ESSE250T PO; +FURO20TA2 PO; +HOLTER MONITOR XX; +METO1TAB87 PO; +PRAD150C6; -RA S160C PO; +SAW160CA23 PO
== END ==
LOC: M RAD 09:51
PROVIDERS: ATTEND Podiatrist
DX: R09.89 Other specified symptoms and signs involving the circulatory and respiratory systems (principal); I70.92 Chronic total occlusion of artery of the extremities

== ENCOUNTER → 2024-10-29 | Outpatient (REF) | payer MEDICARE ==
[~2024-10-29] MED LIST changes: -ESSE250T PO; +MAGN250T17 PO
== END ==
LOC: M LAB REF 14:35
PROVIDERS: ATTEND Family Medicine
DX: I50.22 Chronic systolic (congestive) heart failure (principal); I48.92 Unspecified atrial flutter

== ENCOUNTER → 2025-04-19 | Outpatient (REF) | payer MEDICARE | LOC: M LAB REF 17:29 | PROVIDERS: ATTEND Family Medicine | DX: I48.92 Unspecified atrial flutter (principal) ==